=== PATIENT | female | born 1970 | race Caucasian/White ===

== ENCOUNTER 2018-06-29 02:20 | Emergency (ER) | payer OTHER ==
[2018-06-29] MEDS ORDERED: NS 1,000 ML IV ONE (03:16)
[2018-06-29] MEDS ORDERED: FAMOTIDINE 20 MG/2 ML SDV IVP ONE (03:17)
--- NOTE | 2018-06-29 03:18 | EDPHY ---
H & P Stated Complaint: sob Time Seen by Provider: 06/29/18 03:17 HPI/ROS: HPI CHIEF COMPLAINT: Woke up short of breath. HISTORY OF PRESENT ILLNESS: Very pleasant 48-year-old female, otherwise healthy does have a history of hypertension, presents emergency room by EMS after she states that she woke up approximately an hour and half ago gasping for air. She was sound asleep. She woke up could catch her breath. Denies chest pain. Did state she felt some throat fullness. States that for approximately 30 sec she could talk to her . Finally was able to talk and asked him to call 911. She felt very anxious. Follow heart racing. She arrives to the emergency room hemodynamically stable in no acute distress and has improved. Past Medical History: Hypertension Past Surgical History: Denies recent surgical history Social History: Denies drugs alcohol tobacco. Family History: Noncontributory ROS REVIEW OF SYSTEMS: 10 Systems were reviewed and negative with the exception of the elements mentioned in the history of present illness. Exam Constitutional the nontoxic. triage nursing summary reviewed, vital signs reviewed, awake/alert. Eyes normal conjunctivae and sclera, EOMI, PERRLA. HENT normal inspection, atraumatic, moist mucus membranes, no epistaxis, neck supple/ no meningismus, no raccoon eyes. Respiratory clear to auscultation bilaterally, normal breath sounds, no respiratory distress, no wheezing. Cardiovascular rate normal, regular rhythm, no murmur, no edema, distal pulses normal. Gastrointestinal soft, non-tender, no rebound, no guarding, normal bowel sounds, no distension, no pulsatile mass. Genitourinary no CVA tenderness. Musculoskeletal no midline vertebral tenderness, full range of motion, no calf swelling, no tenderness of extremities, no meningismus, good pulses, neurovascularly intact. Skin pink, warm, & dry, no rash, skin atraumatic. Neurologic awake, alert and oriented x 3, AAOx3, moves all 4 extremities equally, motor intact, sensory intact, CN II-XII intact, normal cerebellar, normal vision, normal speech. Psychiatric normal mood/affect. Heme/Lymph/Immune no lymphadenopathy. Differential diagnosis includes but is not limited to: ACS, atypical chest pain , pneumothorax, pneumonia, pulmonary embolism, aortic dissection, congestive heart failure, tumor, musculoskeletal pain, esophageal pain, GERD, peptic ulcer disease, pancreatitis Medical Decision Making: Plan for this patient IV establishment IV fluid bolus EKG, chest x-ray, basic lab work, full case monitor re-evaluation. Re-evaluation: EKG interpretation by me on record in [facility] system. Impression time of EKG normal sinus rhythm rate of 65 without any signs of acute ischemia no ST elevation or ST depression no T-wave abnormalities. Unremarkable EKG. Patient has a negative troponin 0.00. The patient deny murmurs negative. Patient's EKG is normal sinus rhythm rate of 65 without any signs of acute ischemia. 0516: I did re-evaluate the patient this time she is resting comfortably. She denies any chest pain shortness of breath. Vital signs have been stable. Current vital signs heart rate 66, pulse ox 94% on room air. No complaints. She is eager for discharge. Patient's x-ray chest one view negative for acute cardiopulmonary disease. There is a large left gastric bubble. Patient denies any abdominal pain chest pain or shortness of breath. No great explanation for what she woke up gasping for air. I think cardiac arrhythmia, ACS and PE or unlikely given workup. She feels comfortable being discharged home. She ambulated well throughout the emergency without difficulty. Patient ambulated well throughout the emergency room. Patient's 2nd troponin negative. Source: Patient, EMS - Personal History LMP (Females 10-55): 8-14 Days Ago Current Tetanus Diphtheria and Acellular Pertussis (TDAP): Yes - Medical/Surgical History Hx Asthma: No Hx Chronic Respiratory Disease: No Hx Diabetes: No Hx Cardiac Disease: No Hx Renal Disease: No Hx Cirrhosis: No Hx Alcoholism: No Hx HIV/AIDS: No Hx Splenectomy or Spleen Trauma: No Other PMH: HTN - Social History Smoking Status: Unknown if ever smoked Constitutional: Initial Vital Signs Temperature (C) 36.6 C 06/29/18 02:25 Heart Rate 70 06/29/18 02:25 Respiratory Rate 16 06/29/18 02:25 Blood Pressure 147/78 H 06/29/18 02:25 O2 Sat (%) 95 06/29/18 02:25 O2 Delivery Mode Room Air Allergies/Adverse Reactions: seasonal Allergy (Uncoded 06/29/18 02:24) Home Medications: Medication Instructions Recorded Omaira 06/29/18 Lisinopril 06/29/18 Medical Decision Making - Data Points Laboratory Results: Laboratory Results 06/29/18 03:31 06/29/18 03:31 06/29/18 06/29/18 06/29/18 05:25 03:35 03:31 WBC RBC Hgb Hct MCV MCH MCHC RDW Plt Count MPV Neut % (Auto) Lymph % (Auto) Curry % (Auto) Eos % (Auto) Baso % (Auto) Nucleat RBC Rel Count Absolute Neuts (auto) Absolute Lymphs (auto) Absolute Monos (auto) Absolute Eos (auto) Absolute Basos (auto) Absolute Nucleated RBC Immature Gran % Immature Gran # D-Dimer 0.31 ug/mLFEU ug/mLFEU (0.00-0.50) Sodium Potassium Chloride Carbon Dioxide Anion Gap BUN Creatinine Estimated GFR Glucose Calcium Magnesium Total Bilirubin Conjugated Bilirubin Unconjugated Bilirubin AST ALT Alkaline Phosphatase POC Troponin I 0.00 ng/mL ng/mL 0.00 ng/mL ng/mL (0.00-0.08) (0.00-0.08) NT-Pro-B Natriuret Pep Total Protein Albumin Lipase Beta HCG, Qual 06/29/18 06/29/18 06/29/18 03:31 03:31 03:31 WBC 8.05 10^3/uL 10^3/uL (3.80-9.50) RBC 4.72 10^6/uL 10^6/uL (4.18-5.33) Hgb 14.2 g/dL g/dL (12.6-16.3) Hct 42.2 % % (38.0-47.0) MCV 89.4 fL fL (81.5-99.8) MCH 30.1 pg pg (27.9-34.1) MCHC 33.6 g/dL g/dL (32.4-36.7) RDW 13.0 % % (11.5-15.2) Plt Count 186 10^3/uL 10^3/uL (150-400) MPV 12.1 fL H fL (8.7-11.7) Neut % (Auto) 68.5 % % (39.3-74.2) Lymph % (Auto) 22.2 % % (15.0-45.0) Curry % (Auto) 6.7 % % (4.5-13.0) Eos % (Auto) 1.5 % % (0.6-7.6) Baso % (Auto) 0.7 % % (0.3-1.7) Nucleat RBC Rel Count 0.0 % % (0.0-0.2) Absolute Neuts (auto) 5.51 10^3/uL 10^3/uL (1.70-6.50) Absolute Lymphs (auto) 1.79 10^3/uL 10^3/uL (1.00-3.00) Absolute Monos (auto) 0.54 10^3/uL 10^3/uL (0.30-0.80) Absolute Eos (auto) 0.12 10^3/uL 10^3/uL (0.03-0.40) Absolute Basos (auto) 0.06 10^3/uL 10^3/uL (0.02-0.10) Absolute Nucleated RBC 0.00 10^3/uL 10^3/uL (0-0.01) Immature Gran % 0.4 % % (0.0-1.1) Immature Gran # 0.03 10^3/uL 10^3/uL (0.00-0.10) D-Dimer Sodium 140 mEq/L mEq/L (135-145) Potassium 4.2 mEq/L mEq/L (3.3-5.0) Chloride 107 mEq/L mEq/L (97-110) Carbon Dioxide 26 mEq/l mEq/l (22-31) Anion Gap 7 mEq/L mEq/L (6-14) BUN 14 mg/dL mg/dL (7-23) Creatinine 0.8 mg/dL mg/dL (0.6-1.0) Estimated GFR > 60 Glucose 91 mg/dL mg/dL (70-100) Calcium 9.3 mg/dL mg/dL (8.5-10.4) Magnesium 2.0 mg/dL mg/dL (1.6-2.3) Total Bilirubin 0.4 mg/dL mg/dL (0.1-1.4) Conjugated Bilirubin 0.1 mg/dL mg/dL (0.0-0.5) Unconjugated Bilirubin 0.3 mg/dL mg/dL (0.0-1.1) AST 19 IU/L IU/L (14-46) ALT 23 IU/L IU/L (9-52) Alkaline Phosphatase 88 IU/L IU/L (38-126) POC Troponin I NT-Pro-B Natriuret Pep 69 pg/mL pg/mL (0-125) Total Protein 7.1 g/dL g/dL (6.3-8.2) Albumin 4.2 g/dL g/dL (3.5-5.0) Lipase 160 IU/L IU/L (23-300) Beta HCG, Qual NEGATIVE Medications Given: Discontinued Medications Famotidine (Pepcid) 20 mg IVP EDNOW ONE Stop: 06/29/18 03:18 Last Admin: 06/29/18 03:42 Dose: 20 mg Sodium Chloride (Ns) 1,000 mls @ 0 mls/hr IV EDNOW ONE; Wide Open PRN Reason: Protocol Stop: 06/29/18 03:17 Last Admin: 06/29/18 03:36 Dose: 1,000 mls Point of Care Test Results: Chemistry 06/29/18 06/29/18 05:25 03:35 POC Troponin I 0.00 ng/mL ng/mL 0.00 ng/mL ng/mL (0.00-0.08) (0.00-0.08) Departure - Departure Disposition: Home, Routine, Self-Care Clinical Impression: Acute dyspnea Condition: Good Instructions: Dyspnea (ED) Additional Instructions: 1. Return emergency room immediately if he develops shortness of breath, chest pain or further symptoms 2. Take it easy over the next 72 hr 3. Stay well-hydrated 4. Return if worse. 5 follow up with her primary care doctor. Referrals: Patient,NotPresent [Unknown] - As per Instructions
[2018-06-29 03:47] LABS: PLATELET COUNT 186 10^3/uL (150-400)
[2018-06-29 06:10] VITALS: BP 131/75
--- NOTE | 2018-06-29 08:21 | CPEKG ---
Test Reason : OPEN Blood Pressure : / mmHG Vent. Rate : 065 BPM Atrial Rate : 064 BPM P-R Int : 167 ms QRS Dur : 086 ms QT Int : 403 ms P-R-T Axes : 047 039 032 degrees QTc Int : 419 ms Sinus rhythm Confirmed by Kobe Riggins ([id number]) on 06/29/2018 8:19:44 AM Referred By: Confirmed By:Kobe Riggins
== END 2018-06-29 05:59 | disposition home or self-care (01) ==
LOC: EDUNIT#
DX: R06.00 Dyspnea, unspecified (principal); I10 Essential (primary) hypertension
CPT/HCPCS: 84484-PO; 96374